=== PATIENT | male | born 1985 | race Caucasian/White ===

== ENCOUNTER 2018-07-27 20:19 | Emergency (ER) | payer OTHER ==
--- NOTE | 2018-07-27 20:49 | ED Physician Documentation ---
PD HPI ABD PAIN - Stated complaint Stated Complaint: STOMACH PX - Chief complaint Chief Complaint: Abd Pain - History obtained from History obtained from: Patient - History of Present Illness Timing - onset: Today (this morning) Timing - duration: Hours Timing - details: Gradual onset, Intermittant, Waxing and waning Pain level max: 10 Pain level now: 6 Quality: Sharp, Stabbing, Other (burning) Location: Periumbilical Radiation: Other (does not radiate) Improved by: Laying still (laying down (supine)) Worsened by: Other (no apparent exacerbating factors) Associated symptoms: Diarrhea, Constipation. No: Fever, Nausea, Vomiting Similar symptoms before: No diagnosis (patient says he has had several previous such episodes, feels as though it is roughly an annual occurence. He says he has been evaluated in the past without diagnosis despite some testing.) Recently seen: Not recently seen Review of Systems Constitutional: denies: Fever, Chills, Sweats Cardiac: reports: Reviewed and negative Respiratory: reports: Reviewed and negative GI: reports: Abdominal Pain, Constipation, Diarrhea. denies: Abdominal Swelling, Nausea, Vomiting : denies: Dysuria, Frequency Musculoskeletal: reports: Reviewed and negative PD PAST MEDICAL HISTORY - Past Medical History Past Medical History: No - Past Surgical History Past Surgical History: No - Present Medications Home Medications: Ambulatory Orders Medication Instructions Recorded Confirmed Dicyclomine [Bentyl] 10 mg PO QID PRN #20 capsule 07/28/18 oxyCODONE [Roxicodone] 5 - 10 mg PO Q6H PRN #15 tablet 07/28/18 - Allergies Allergies/Adverse Reactions: Allergies Allergy/AdvReac Type Severity Reaction Status Date / Time No Known Drug Allergies Allergy Verified 07/27/18 20:24 - Social History Does the pt smoke?: No Smoking Status: Never smoker Does the pt drink ETOH?: Yes Does the pt have substance abuse?: No - Immunizations Immunizations are current?: Yes PD ED PE NORMAL - Vitals Vital signs reviewed: Yes - General General: Alert and oriented X 3, Well developed/nourished, Other (appears uncomfortable, mild painful distress) - HEENT HEENT: Moist mucous membranes - Cardiac Cardiac: RRR, No murmur - Respiratory Respiratory: No respiratory distress, Clear bilaterally - Abdomen Abdomen: Normal bowel sounds, Soft, Non distended, Other (mild periumbilical and epigastric tenderness without rebound or guarding) - Back Back: No CVA TTP - Derm Derm: Normal color, No rash Results - Vitals Vitals: Vital Signs - 24 hr 07/27/18 07/27/18 07/27/18 20:21 21:27 22:44 Temperature 36.6 C Heart Rate 83 82 68 Respiratory 14 16 16 Rate Blood Pressure 137/90 H 131/90 H 123/90 H O2 Saturation 95 97 98 07/28/18 00:06 Temperature Heart Rate 80 Respiratory 16 Rate Blood Pressure 134/83 H O2 Saturation 96 Oxygen O2 Source Room air - Labs Labs: Laboratory Tests 07/27/18 07/27/18 07/27/18 20:54 20:54 22:22 WBC 7.6 RBC 4.77 Hgb 13.8 L Hct 39.7 L MCV 83.3 MCH 29.0 MCHC 34.9 RDW 12.9 Plt Count 250 MPV 8.8 Neut # (Auto) 4.9 Lymph # (Auto) 2.0 [place] # (Auto) 0.5 Eos # (Auto) 0.1 Baso # (Auto) 0.0 Absolute Nucleated RBC 0.00 Nucleated RBC % 0.0 Sodium 136 Potassium 3.5 Chloride 100 L Carbon Dioxide 27 Anion Gap 9.0 BUN 16 Creatinine 1.1 Estimated GFR (MDRD) 78 L Glucose 109 H Calcium 9.0 Total Bilirubin 0.6 AST 27 ALT 46 Alkaline Phosphatase 69 Total Protein 7.7 Albumin 4.5 Globulin 3.2 Albumin/Globulin Ratio 1.4 Lipase 24 Urine Color YELLOW Urine Clarity CLEAR Urine pH 5.5 Ur Specific Sentinel >=1.030 H Urine Protein NEGATIVE Urine Glucose (UA) NEGATIVE Urine Ketones NEGATIVE Urine Occult Blood NEGATIVE Urine Nitrite NEGATIVE Urine Bilirubin NEGATIVE Urine Urobilinogen 0.2 (NORMAL) Ur Leukocyte Esterase NEGATIVE Ur Microscopic Review NOT INDICATED Urine Culture Comments NOT INDICATED - Rads (name of study) RUQ US Radiology: Prelim report reviewed, See rad report PD MEDICAL DECISION MAKING - ED course Complexity details: reviewed results, re-evaluated patient, considered differential, d/w patient Departure - Departure Disposition: 01 Home, Self Care Clinical Impression: Abdominal pain Condition: Good Instructions: ED Abdominal Pain Unkn Cause Male Follow-Up: [facility] [Provider Group] Prescriptions: Dicyclomine [Bentyl] 10 mg PO QID PRN #20 capsule PRN Reason: Abdominal Pain oxyCODONE [Roxicodone] 5 - 10 mg PO Q6H PRN #15 tablet PRN Reason: Abdominal Pain Discharge Date/Time: 07/28/18 00:29
[2018-07-27 21:05] LABS: BASOPHILS % (AUTO) 0.6 %; EOSINOPHILS # (AUTO) 0.1 10^3/uL (0.0-0.7); EOSINOPHILS % (AUTO) 1.7 %; HGB - HEMOGLOBIN 13.8 g/dL (14.0-18.0); LYMPHOCYTES % (AUTO) 26.3 %; MEAN CORPUSCULAR HGB CONC 34.9 g/dL (32.0-36.0); MEAN CORPUSCULAR VOLUME 83.3 fL (80.0-94.0); MEAN PLATELET VOLUME 8.8 fL (7.4-11.4); MONOCYTES # (AUTO) 0.5 10^3/uL (0.0-1.0); MONOCYTES % (AUTO) 6.6 %; NEUTROPHILS # (AUTO) 4.9 10^3/uL (1.5-6.6); NEUTROPHILS % (AUTO) 64.8 %; PLT - PLATELET COUNT 250 10^3/uL (130-450); RED BLOOD COUNT 4.77 10^6/uL (4.70-6.10); RED CELL DISTRIBUTION WIDTH 12.9 % (12.0-15.0); WHITE BLOOD COUNT 7.6 x10^3/uL (4.8-10.8)
[2018-07-27 21:13] LABS: ALBUMIN 4.5 g/dL (3.2-5.5); ALBUMIN/GLOBULIN RATIO 1.4 (1.0-2.2); BILIRUBIN,TOTAL 0.6 mg/dL (0.2-1.0); CREATININE 1.1 mg/dL (0.6-1.2); TOTAL PROTEIN 7.7 g/dL (6.7-8.2)
[2018-07-27] MEDS ORDERED: MORPHINE 2 MG/ML CARPUJECT IVP STA (21:15)
[2018-07-27] MEDS ORDERED: KETOROLAC 30 MG/ML VIAL IVP STA (21:15)
--- NOTE | 2018-07-27 22:39 | Ultrasound Report ---
Reason: abd. pain Procedure Date: 07/27/2018 Accession Number: [id number] / [id number] Procedure: US - Abdomen Limited CPT Code: FULL RESULT: EXAM: ABDOMEN ULTRASOUND LIMITED, RUQ EXAM DATE: 07/27/2018 10:19 PM. CLINICAL HISTORY: Abd. pain. COMPARISON: None. TECHNIQUE: Real-time scanning was performed with static images obtained. FINDINGS: Liver: Diffusely echogenic. 15.7 cm. Main portal vein flow: Hepatopetal. Gallbladder: No stones, wall thickening, or sonographic Kelley's sign. Biliary System: CBD measures 4 mm. No intrahepatic ductal dilatation. Other: Right kidney demonstrates no hydronephrosis. Visualized portions of the pancreas are unremarkable. IMPRESSION: No acute sonographic abnormalities. Diffuse hepatic steatosis. RADIA
[2018-07-27 22:44] LABS: BILIRUBIN,URINE NEGATIVE (NEGATIVE); GLUCOSE, URINE (UA) NEGATIVE (NEGATIVE); KETONES,URINE (UA) NEGATIVE (NEGATIVE); LEUKOCYTE ESTERASE, URINE NEGATIVE (NEGATIVE); NITRITE,URINE NEGATIVE (NEGATIVE); OCCULT BLOOD,URINE NEGATIVE (NEGATIVE); PH,URINE 5.5 PH (5.0-7.5); PROTEIN,URINE NEGATIVE (NEGATIVE); UROBILINOGEN,URINE 0.2 (NORMAL) E.U./dL (NORMAL)
[2018-07-27 22:48] LABS: CLARITY,URINE CLEAR (CLEAR)
[2018-07-28 00:06] VITALS: BP 134/83
[2018-07-28] MEDS ORDERED: MORPHINE 2 MG/ML CARPUJECT IVP STA (00:18)
[2018-07-28] MEDS ORDERED: DICYCLOMINE 10 MG CAPSULE PO STA (00:18)
== END 2018-07-28 00:29 | disposition home or self-care (01) ==
LOC: ED 20:19
DX: R10.9 Unspecified abdominal pain (principal)
CPT/HCPCS: 36415; 76705; 80053; 81003; 83690; 85025; 96374; 96376; 99283; 99284; A9270; 81001; 87086

== ENCOUNTER 2020-09-15 08:00 | Outpatient (CLI) | payer OTHER | END 2020-09-15 23:59 | disposition home or self-care (01) | LOC: LAB.N 08:00 | PROVIDERS: ATTEND Family Medicine | DX: L02.214 Cutaneous abscess of groin (principal) | CPT/HCPCS: 87070; 87205 ==

== ENCOUNTER 2020-09-28 19:11 | Emergency (ER) | payer OTHER ==
[2020-09-28 19:40] VITALS: BP 122/96
[2020-09-28 20:38] LABS: B. PARAPERTUSSIS- RESP PCR PAN NOT DETECTED; B. PERTUSSIS- RESP PCR PANEL NOT DETECTED; C. PNEUMONIAE- RESP PCR PANEL NOT DETECTED; CORONAVIRUS 229E-RESP PCR NOT DETECTED; CORONAVIRUS HKU1-RESP PCR NOT DETECTED; CORONAVIRUS NL63-RESP PCR NOT DETECTED; CORONAVIRUS OC43-RESP PCR NOT DETECTED; HUMAN METAPNEUMOVIRUS NOT DETECTED; INFLUENZA A- RESP PCR PANEL NOT DETECTED; INFLUENZA B - RESP PCR PANEL NOT DETECTED; M. PNEUMONIAE- RESP PCR PANEL NOT DETECTED; PARAINFLUENZA VIRUS 1 NOT DETECTED; PARAINFLUENZA VIRUS 2 NOT DETECTED; PARAINFLUENZA VIRUS 3 NOT DETECTED; PARAINFLUENZA VIRUS 4 NOT DETECTED; RHINOVIRUS/ENTEROVIRUS NOT DETECTED; RSV- RESP PCR PANEL NOT DETECTED; SARS-CoV-2 -RESP PCR PANEL NOT DETECTED
--- NOTE | 2020-09-28 20:44 | ED Physician Documentation ---
History of Present Illness - Stated complaint Stated Complaint: BODY ACHE,COUGH,HEADACHE - Chief complaint Chief Complaint: General - History obtained from History obtained from: Patient - Additonal information Additional information: 34-year-old man, unvaccinated against COVID-19, presents with body aches, nonproductive cough, rhinorrhea, and generalized mild headaches over the past couple days. [place] is requesting a Covid test. No other complaints. Review of Systems Constitutional: reports: Myalgias, Fatigue Respiratory: reports: Cough. denies: Dyspnea GI: denies: Nausea, Vomiting, Diarrhea Neurologic: reports: Headache PD PAST MEDICAL HISTORY - Past Medical History Past Medical History: Yes - Past Surgical History Past Surgical History: No - Present Medications Home Medications: Ambulatory Orders Medication Instructions Recorded Confirmed No Known Home Medications 09/28/20 09/28/20 - Allergies Allergies/Adverse Reactions: Allergies Allergy/AdvReac Type Severity Reaction Status Date / Time No Known Drug Allergies Allergy Verified 09/28/20 19:40 - Social History Does the pt smoke?: No Smoking Status: Never smoker Does the pt drink ETOH?: Yes Does the pt have substance abuse?: No - Immunizations Immunizations are current?: Yes - POLST Patient has POLST: No PD ED PE NORMAL - Vitals Vital signs reviewed: Yes - General General: Alert and oriented X 3, No acute distress, Well developed/nourished - HEENT HEENT: Atraumatic, PERRL, EOMI, Ears normal, Moist mucous membranes, Pharynx benign - Neck Neck: Supple, no meningeal sign - Cardiac Cardiac: RRR - Respiratory Respiratory: No respiratory distress, Clear bilaterally - Derm Derm: Normal color, Warm and dry - Extremities Extremities: No deformity - Neuro Neuro: Alert and oriented X 3, statistics manager 2-12 intact, No motor deficit, No sensory deficit - Psych Psych: Normal mood, Normal affect Results - Vitals Vitals: Vital Signs - 24 hr 09/28/20 19:36 Temperature 37.1 C Heart Rate 106 H Respiratory 16 Rate Blood Pressure 122/96 H O2 Saturation 98 Oxygen O2 Source Room air - Labs Labs: Laboratory Tests 09/28/20 19:36 Nasal Adenovirus (PCR) NOT DETECTED Nasal B. parapertussis DNA (PCR) NOT DETECTED Nasal Coronavir 229E PCR NOT DETECTED Nasal Coronavir HKU1 PCR NOT DETECTED Nasal Coronavir NL63 PCR NOT DETECTED Nasal Coronavir OC43 PCR NOT DETECTED Nasal Enterovir/Rhinovir PCR NOT DETECTED Nasal Influenza B PCR NOT DETECTED Nasal Influenza A PCR NOT DETECTED Nasal Parainfluen 1 PCR NOT DETECTED Nasal Parainfluen 2 PCR NOT DETECTED Nasal Parainfluen 3 PCR NOT DETECTED Nasal Parainfluen 4 PCR NOT DETECTED Nasal RSV (PCR) NOT DETECTED Nasal B.pertussis DNA PCR NOT DETECTED Nasal C.pneumoniae (PCR) NOT DETECTED Mike Human Metapneumo PCR NOT DETECTED Nasal M.pneumoniae (PCR) NOT DETECTED Nasal SARS-CoV-2 (PCR) NOT DETECTED PD MEDICAL DECISION MAKING - ED course ED course: 34-year-old man presented for evaluation for COVID-19. His test came back negative, therefore advised him to return to work and if his symptoms persist he can get retested. Return precautions given. Follow-up with flight surgeon. Departure - Departure Disposition: 01 Home, Self Care Clinical Impression: Encounter for medical screening examination Condition: Good Comments: You are seen in the emergency department for evaluation for COVID-19. Your respiratory viral panel which tested for COVID-19 and other viruses did not show any infection. You can return to work. You may need to get retested if he continues to have symptoms, because sometimes the test does not come back positive early in the course of disease. Return to the emergency department if you have any new or worsening symptoms or other concerns[place]
== END 2020-09-28 20:50 | disposition home or self-care (01) ==
LOC: ED 19:11
DX: R05 Cough (principal); M79.10 Myalgia, unspecified site; R51.9 Headache, unspecified; Z20.822 Contact with and (suspected) exposure to COVID-19
CPT/HCPCS: 0202U; 99282; 99283